=== PATIENT | male | born 1950 | race Caucasian/White ===

== ENCOUNTER 2019-06-25 13:50 | Day surgery (SDC) | payer MEDICARE, OTHER ==
[~2019-06-25] VITALS: Ht 162.6 cm; Wt 63.3 kg
[~2019-06-25 13:50] MED LIST: ATOR10; DUTA.5 PO; FINA5; Glucosamine H1500 MG PO; Hytrin2 MG; LOSA25; Lovastatin10 MG; OMEPRAZOLE20 MG
--- NOTE | 2019-06-25 14:29 | NUR ---
06/25/19 1429 Sara Kong 1 IV MISS IN RH BY VIVIENNE VALVE 1 GOOD IV IN RAC BY VIVIENNE PT TOW
--- NOTE | 2019-06-25 17:23 | NUR ---
06/25/19 6162 Jo Coleman TECH INJECTED 3 MLS NORMAL SALINE FOR POLYPECTOMY PER
--- NOTE | 2019-06-25 17:51 | NUR ---
06/25/19 1750 Savage Thompson PT HAS EXP WHEEZES POST OP. PT DENEIS FEELING SHORT OF BREATH. O2 SATURATION 96%. DR. SHEIKH NOTIFIED. DUONEB BREATHING TREATMENT ADMINISTERED PER DR. SHEIKH.
== END 2019-06-25 18:04 | disposition home or self-care (01) ==
LOC: ORSCSDS 13:50
PROVIDERS: Surgery
PROC: 0DBP8ZX Excision of Rectum, Via Natural or Artificial Opening Endoscopic, Diagnostic (ICD-10-PCS; principal; 2019-06-25 15:00)
PROC: 3E0H8GC Introduction of Other Therapeutic Substance into Lower GI, Via Natural or Artificial Opening Endoscopic (ICD-10-PCS; principal; 2019-06-25 15:00)
PROC: 0DBM8ZX Excision of Descending Colon, Via Natural or Artificial Opening Endoscopic, Diagnostic (ICD-10-PCS; principal; 2019-06-25 15:00)
PROC: 0DBH8ZX Excision of Cecum, Via Natural or Artificial Opening Endoscopic, Diagnostic (ICD-10-PCS; principal; 2019-06-25 15:00)
PROC: 0DBN8ZX Excision of Sigmoid Colon, Via Natural or Artificial Opening Endoscopic, Diagnostic (ICD-10-PCS; principal; 2019-06-25 15:00)
DX: Z12.11 Encounter for screening for malignant neoplasm of colon (principal); Z86.010 Personal history of colon polyps; D12.0 Benign neoplasm of cecum; D12.4 Benign neoplasm of descending colon; K63.5 Polyp of colon; K62.1 Rectal polyp; I10 Essential (primary) hypertension; E78.5 Hyperlipidemia, unspecified; Z79.899 Other long term (current) drug therapy
CPT/HCPCS: 88305; J2405; J2704; J7120

== ENCOUNTER 2022-05-17 08:17 | Day surgery (SDC) | payer MEDICARE, OTHER ==
[~2022-05-17] VITALS: Ht 162.6 cm; Wt 59.9 kg
[2022-05-17] MEDS ORDERED: LEVOTHYROXINE13 MCG (08:37)
--- NOTE | 2022-05-17 09:08 | NUR ---
05/17/22 0908 Leah Arthur TWO ATTEMPTS AT IV. FIRST ATTEMPPT AT IV BY MA IN RIGHT HAND INFILTRATED. SECOND ATTEMPT AT IV IN RIGHT AC BY MA SUCCESSFUL.
== END 2022-05-17 10:09 | disposition home or self-care (01) ==
LOC: ORSCSDS 08:17
PROVIDERS: Student in an Organized Health Care Education/Training Program
PROC: 0DB78ZX Excision of Stomach, Pylorus, Via Natural or Artificial Opening Endoscopic, Diagnostic (ICD-10-PCS; principal; 2022-05-17 09:30)
PROC: 0DB98ZX Excision of Duodenum, Via Natural or Artificial Opening Endoscopic, Diagnostic (ICD-10-PCS; principal; 2022-05-17 09:30)
PROC: 0DB58ZX Excision of Esophagus, Via Natural or Artificial Opening Endoscopic, Diagnostic (ICD-10-PCS; principal; 2022-05-17 09:30)
DX: K21.00 Gastro-esophageal reflux disease with esophagitis, without bleeding (principal); K29.80 Duodenitis without bleeding; K29.60 Other gastritis without bleeding; K44.9 Diaphragmatic hernia without obstruction or gangrene; I10 Essential (primary) hypertension; Z79.899 Other long term (current) drug therapy
CPT/HCPCS: 88305; 88312; 88313; 88342; J2704; J7120

== ENCOUNTER 2023-07-09 11:36 | Day surgery (SDC) | payer MEDICARE, OTHER ==
[~2023-07-09] VITALS: Ht 162.6 cm; Wt 58.8 kg
[~2023-07-09 11:36] MED LIST changes: +LEVOTHYROXINE13 MCG
[2023-07-09] MEDS ORDERED: FAMO20 (11:56)
[2023-07-09 13:38] VITALS: BP 138/80
== END 2023-07-09 13:41 | disposition home or self-care (01) ==
LOC: ORSCSDS 11:36
PROVIDERS: Surgery
PROC: 0DBL8ZX Excision of Transverse Colon, Via Natural or Artificial Opening Endoscopic, Diagnostic (ICD-10-PCS; principal; 2023-07-09 13:00)
PROC: 0DBN8ZX Excision of Sigmoid Colon, Via Natural or Artificial Opening Endoscopic, Diagnostic (ICD-10-PCS; principal; 2023-07-09 13:00)
DX: Z12.11 Encounter for screening for malignant neoplasm of colon (principal); Z86.010 Personal history of colon polyps; D12.3 Benign neoplasm of transverse colon; K63.5 Polyp of colon; D12.5 Benign neoplasm of sigmoid colon; K64.4 Residual hemorrhoidal skin tags; K21.9 Gastro-esophageal reflux disease without esophagitis; E78.5 Hyperlipidemia, unspecified; I10 Essential (primary) hypertension; E03.9 Hypothyroidism, unspecified; Z79.899 Other long term (current) drug therapy
CPT/HCPCS: 88305; J2704; J7120

== ENCOUNTER 2023-11-20 05:56 | Observation (INO) | payer MEDICARE, OTHER ==
[~2023-11-20] VITALS: Ht 162.6 cm; Wt 60.0 kg
[2023-11-20] VITALS (20 sets, daily range): BP systolic 129–159; BP diastolic 64–102
[~2023-11-20 05:56] MED LIST changes: +FAMO20 PO; -FINA5; +FINA5 PO; -Hytrin2 MG; +Hytrin2 MG PO; -LEVOTHYROXINE13 MCG; +LEVOTHYROXINE13 MCG PO; -Lovastatin10 MG; +Lovastatin10 MG PO
[2023-11-20] MEDS ORDERED: Lactated Ringer's 1,000 ML IV SCH ×2 (06:10→10:00)
[2023-11-20] MEDS ORDERED: Acetaminophen 500 MG Tab PO SCH (06:10)
[2023-11-20] MEDS ORDERED: Ondansetron HCl 2 MG / ML 2ML Vial ONE ×2 (06:53→10:21)
[2023-11-20] MEDS ORDERED: Lidocaine HCl 2% 20 ML MDV ONE (06:53)
[2023-11-20] MEDS ORDERED: Dexamethasone Sod Phos 10 MG/ML 1ML VIAL ONE (06:53)
[2023-11-20] MEDS ORDERED: propofoL 20 ML IV ONE (06:53)
[2023-11-20] MEDS ORDERED: Sugammadex Sodium 200 MG/2ML SDV (100 MG/ML) ONE (06:53)
[2023-11-20] MEDS ORDERED: Rocuronium Bromide 10 MG/ML 5ML Injection IV ONE ×2 (06:53→08:00)
[2023-11-20] MEDS ORDERED: FentaNYL Citrate 50 MCG/ML 2 ML Injection ONE ×3 (06:53→10:28)
[2023-11-20] MEDS ORDERED: Ondansetron HCl 2 MG / ML 2ML Vial IV PRN ×2 (06:55→09:55)
[2023-11-20] MEDS ORDERED: Lidocaine HCl 1% 5 ML SYR INJ ONE (06:55)
[2023-11-20] MEDS ORDERED: FentaNYL Citrate 50 MCG/ML 2 ML Injection IV PRN ×3 (06:55→07:00)
[2023-11-20] MEDS ORDERED: HYDROmorphone HCl/Pf 1MG SYR IV PRN (07:00)
--- NOTE | 2023-11-20 07:13 | NUR ---
Patient up to Ambulate independently. Gait steady. History, Chart, Medications and Allergies reviewed before start of procedure.Pre-Op teaching done. Pt verbalizes understanding.
[2023-11-20] MEDS ORDERED: Bupivacaine 0.5% HCl 5 MG/ML 30MLVIAL ONE (07:21)
[2023-11-20] MEDS ORDERED: ePHEDrine Sulfate 50 MG/ML 1ML Injection ONE (07:53)
[2023-11-20] MEDS ORDERED: Labetalol HCL 5 MG/ML 4ML Injection (Single Dose) ONE (08:23)
--- NOTE | 2023-11-20 09:34 | NUR ---
11/20/23 0934 DINH CHAO PROCDURE FROM [id number]. LEFT LEG PROCEDURE STARTED 932.
[2023-11-20] MEDS ORDERED: Metoclopramide HCl 5MG / ML 2ML Vial IV PRN (09:55)
[2023-11-20] MEDS ORDERED: OxyCODONE HCL 5 MG TAB PO PRN (09:55)
[2023-11-20] MEDS ORDERED: Acetaminophen 325 MG TABLET PO PRN (10:00)
[2023-11-20] MEDS ORDERED: FLU VACC QS2023-24(6MOS UP)/PF 60 MCG/0.5 ML SYRINGE IM SCH (10:00)
[2023-11-20] MEDS ORDERED: Ketorolac Tromethamine 15mg Vial IV PRN (10:15)
[2023-11-20] MEDS ORDERED: Droperidol 5 mg/2 ml Vial ONE (10:36)
[2023-11-20] MEDS ORDERED: Metoclopramide HCl 5MG / ML 2ML Vial ONE (10:52)
[2023-11-20] MEDS ORDERED: Metoclopramide HCl 5MG / ML 2ML Vial IV ONE (11:00)
[2023-11-20] MEDS ORDERED: Droperidol 5 mg/2 ml Vial IV ONE (11:00)
--- NOTE | 2023-11-20 11:30 | NUR ---
PATIENT ARRIVED FROM PACU TODAY. POD 0 LAP HIATAL HERNIA WITH FUNDOPLICATION AND LEFT CALF MASS REMOVAL PATIENT IS A&OX4. HE WAS ABLE TO STAND AND TRANSFER FROM THE [facility] TO THE [facility] [place]. PATIENTS ABD HAS X4 LAP SITES WITH WOUND GLUE THAT ARE C/D/I. HE ALSO HAS A PRIMEO DRESSING ON THE LEFT UPPER CALF FROM INCISION THAT IS ALSO C/D/I. PATIENT DENIES NUMBNESS OR TINGLING THROUGHOUT ALL EXTREMITIES. PATIENT REFUSES PAIN MEDS AT THIS TIME. PATIENT STATED "I STILL FEEL SLIGHTLY NAUSEOUS BUT THE MEDICATIONS THEY GAVE ME BACK THERE I THINK ARE WORKING. I DON'T WANT ANY MORE MEDICATIONS RIGHT NOW". PATIENT IS CURRENTLY LAYING IN BED WITH CALL LIGHT IN REACH. PATIENT IS AWARE OF DIET RESTRICTIONS SUCH NO CARBONATED DRINKS, CARBS, OR COFFEE. PATIENT WAS ALSO GIVEN DR. SUQIRES'S FUNDOPLICATION DIET EDUCATION PAPERWORK WELL WHICH IS AT HIS BEDSIDE.
--- NOTE | 2023-11-20 15:33 | NUR ---
SHIFT SUMMARY: POD 0 LAP HIATAL HERNIA WITH FUNDOPLICATION AND LEFT LEG MASS REMOVAL PATIENT IS A&OX4. VS ARE WNL AND IS ON RA. PATIENT HAS REFUSED PAIN MEDICATIONS SO FAR THIS SHIFT. HIS ABD HAS X4 LAP SITES WITH WOUND GLUE THAT ARE C/D/I. HE ALSO HAS AN INCISION ABOVE HIS LEFT CALF THAT HAS A PRIMEO DRESSING THAT IS ALSO C/D/I. PATIENT IS ABLE TO MOVE ALL EXTREMITIES WHEN ASKED. HE DENIES NAUSEA OR VOMITING THROUGHOUT THE SHIFT SO FAR. HE IS TOLERATING SMALL AMOUNTS OF CLEAR LIQUID PO INTAKE AND PATIENT WAS ALSO GIVEN DR. SQUIRES'S POST FUNDOPLICATION DIET PAPER INSTRUCTIONS THAT ARE AT BEDSIDE. HE IS CURRENTLY SITTING UP IN A CHAIR IN THE ROOM WITH CALL LIGHT IN REACH. PATIENT IS INDEP. IN THE ROOM. HE CALLS APPROPRIATELY.
[2023-11-20] MEDS ORDERED: Finasteride 5 MG Tab PO SCH (18:00)
[2023-11-20] MEDS ORDERED: Sennosides 8.6 MG Tab PO SCH (21:00)
[2023-11-20] MEDS ORDERED: Atorvastatin 10 MG Tab PO SCH (21:00)
[2023-11-20] MEDS ORDERED: Doxazosin Mesylate 2 MG Tab PO SCH (21:00)
[2023-11-21 04:37] VITALS: BP 153/91
[2023-11-21 05:37] LABS: Hematocrit 44.3 % (37.0-53.0); Hemoglobin 15.1 g/dL (13.5-17.5); Mean Corpuscular HGB 32.1 pg (26.0-34.0); Mean Corpuscular HGB Conc 34.1 g/dL (31.5-36.5); Mean Corpuscular Volume 94 fL (80-100); Mean Platelet Volume 9.6 fL (9.1-12.4); Platelet Count 323 K/mm3 (150-400); RDW Standard Deviation 48.4 fL (35.1-46.3)
--- NOTE | 2023-11-21 05:46 | NUR ---
SHIFT SUMMARY POD1 HIATAL HERNIA REPAIR. X4 LAP ARE C/D/I. PT SLEPT LIGHTLY T/O THE NIGHT. TOLLERATING MINIMAL CLEAR LIQUIDS T/O THE NIGHT W/O N/V. PT REPORTS PASSING FLATTUS. VOIDING W/O DIFFICULTY. AMBULATING INDEPENDENTLY. NO ACUTE EVENTS NOTED. PT EXPRESSED WANTING TO BE DISCHARGED JESSICA THIS AM, PLAN TO PASS THIS ONTO DAY SHIFT.
[2023-11-21] MEDS ORDERED: Levothyroxine Sodium 0.05 MG Tab PO SCH (06:00)
[2023-11-21 07:46] VITALS: BP 145/91
[2023-11-21] MEDS ORDERED: Acetaminophen650 M1 PO (08:29)
--- NOTE | 2023-11-21 08:47 | NUR ---
DISCHARGE PATIENT TOLERATING PO INTAKE, VOIDING, PAIN MANAGED. PASSES FLATUS. DISCHARGE INSTRUCTIONS GIVEN AND SIGNED PATIENT LEAVES VIA PRIVATE VEHICLE.
[2023-11-21] MEDS ORDERED: Enoxaparin 40 MG/0.4 ML SYR SC SCH (09:00)
--- NOTE | 2023-11-21 09:01 | NUR ---
DECLINES WC & AMBULATES OUT ON OWN. STATES HIS RIDE IS WAITING.
== END 2023-11-21 09:01 | disposition home or self-care (01) ==
LOC: ORSCMMR 05:56 → ORD 07:30 → ORSCMMR 07:30 → SURS 10:18 → ORSCMMR 10:19 → SURS 10:20
PROVIDERS: ADMIT Surgery
PROC: 0JBP0ZZ Excision of Left Lower Leg Subcutaneous Tissue and Fascia, Open Approach (ICD-10-PCS; principal; 2023-11-20 07:30)
PROC: 0BQT4ZZ Repair Diaphragm, Percutaneous Endoscopic Approach (ICD-10-PCS; principal; 2023-11-20 07:30)
DX: K44.9 Diaphragmatic hernia without obstruction or gangrene (principal); K21.00 Gastro-esophageal reflux disease with esophagitis, without bleeding; D36.13 Benign neoplasm of peripheral nerves and autonomic nervous system of lower limb, including hip; I10 Essential (primary) hypertension; E78.5 Hyperlipidemia, unspecified; E03.9 Hypothyroidism, unspecified; Z79.890 Hormone replacement therapy; Z79.899 Other long term (current) drug therapy
CPT/HCPCS: 36415; 74018; 85027; 88307; 94760; A9270; J1100; J1790; J2405; J2704; J2765; J3010; J7120

== ENCOUNTER 2024-04-15 07:52 | Day surgery (SDC) | payer MEDICARE, OTHER ==
[~2024-04-15] VITALS: Ht 162.6 cm; Wt 57.9 kg
[~2024-04-15 07:52] MED LIST changes: +Acetaminophen650 M1 PO; +Balanced Salt Epinephrine Irrigation Solution 500 mL IR SCH; +Lidocaine HCl/Pf 1% 5 ML VIAL XX SCH; +Moxifloxacin HCL 0.5 MG/0.1 ML 0.4MLSYR LEFTEYE SCH; +NS 500 ML IV ONE; +PHENYLEPHRINE\\TROPICAMIDE\\TETRACAINE OPHTHALMIC DILATING SOLN LEFTEYE PRN; +Povidone-Iodine 450 DROP/30 ML Solution LEFTEYE SCH; +Triamcinolone Inj Susp 40 MG / ML 1ML Vial INJ SCH; +Triamcinolone Inj Susp 40 MG / ML 1ML Vial ONE
[2024-04-15] MEDS ORDERED: NS 500 ML IV ONE (08:15)
[2024-04-15] MEDS ORDERED: Midazolam HCl 1MG / ML 2ML Vial ONE (08:46)
[2024-04-15] MEDS ORDERED: FentaNYL Citrate 50 MCG/ML 2 ML Injection ONE (08:46)
[2024-04-15] MEDS ORDERED: Tetracaine HCl 0.5% Opth Soln 15 ml LEFTEYE ONE (09:05)
[2024-04-15] MEDS ORDERED: Ondansetron 4 MG SoluTab ONE ×2 (09:33→09:36)
[2024-04-15 09:44] VITALS: BP 129/87
== END 2024-04-15 09:51 | disposition home or self-care (01) ==
LOC: ORSCSDS 07:52
PROVIDERS: Ophthalmology
PROC: 08RK3JZ Replacement of Left Lens with Synthetic Substitute, Percutaneous Approach (ICD-10-PCS; principal; 2024-04-15 09:00)
DX: H25.812 Combined forms of age-related cataract, left eye (principal); H52.202 Unspecified astigmatism, left eye; I10 Essential (primary) hypertension; E78.5 Hyperlipidemia, unspecified; E03.9 Hypothyroidism, unspecified; N40.0 Benign prostatic hyperplasia without lower urinary tract symptoms; Z85.53 Personal history of malignant neoplasm of renal pelvis; Z79.899 Other long term (current) drug therapy
CPT/HCPCS: A9270; J2250; J3010; J3301; J7040; V2632

== ENCOUNTER 2024-04-22 07:44 | Day surgery (SDC) | payer MEDICARE, OTHER ==
[~2024-04-22] VITALS: Ht 162.6 cm; Wt 58.0 kg
[~2024-04-22 07:44] MED LIST changes: -Moxifloxacin HCL 0.5 MG/0.1 ML 0.4MLSYR LEFTEYE SCH; +Moxifloxacin HCL 0.5 MG/0.1 ML 0.4MLSYR RIGHTEYE SCH; -NS 500 ML IV ONE; -PHENYLEPHRINE\\TROPICAMIDE\\TETRACAINE OPHTHALMIC DILATING SOLN LEFTEYE PRN; +PHENYLEPHRINE\\TROPICAMIDE\\TETRACAINE OPHTHALMIC DILATING SOLN RIGHTEYE PRN; -Povidone-Iodine 450 DROP/30 ML Solution LEFTEYE SCH; +Povidone-Iodine 450 DROP/30 ML Solution RIGHTEYE SCH
[2024-04-22] MEDS ORDERED: FINA5 PO (08:16)
[2024-04-22] MEDS ORDERED: NS 500 ML IV ONE (08:27)
[2024-04-22] MEDS ORDERED: Midazolam HCl 1MG / ML 2ML Vial ONE (08:40)
[2024-04-22] MEDS ORDERED: FentaNYL Citrate 50 MCG/ML 2 ML Injection ONE (08:40)
[2024-04-22 09:38] VITALS: BP 128/81
== END 2024-04-22 09:57 | disposition home or self-care (01) ==
LOC: ORSCSDS 07:44
PROVIDERS: Ophthalmology
PROC: 08RJ3JZ Replacement of Right Lens with Synthetic Substitute, Percutaneous Approach (ICD-10-PCS; principal; 2024-04-22 09:00)
DX: H25.811 Combined forms of age-related cataract, right eye (principal); H52.201 Unspecified astigmatism, right eye; Z96.1 Presence of intraocular lens; I10 Essential (primary) hypertension; E78.5 Hyperlipidemia, unspecified; E03.9 Hypothyroidism, unspecified; N40.0 Benign prostatic hyperplasia without lower urinary tract symptoms; Z85.53 Personal history of malignant neoplasm of renal pelvis; Z79.899 Other long term (current) drug therapy
CPT/HCPCS: J2250; J3010; J3301; V2632

== ENCOUNTER 2024-09-22 03:10 | Emergency (ER) | payer MEDICARE, OTHER ==
[~2024-09-22] VITALS: Ht 162.6 cm; Wt 57.6 kg
[~2024-09-22 03:10] MED LIST changes: -Balanced Salt Epinephrine Irrigation Solution 500 mL IR SCH; -Lidocaine HCl/Pf 1% 5 ML VIAL XX SCH; -Moxifloxacin HCL 0.5 MG/0.1 ML 0.4MLSYR RIGHTEYE SCH; -PHENYLEPHRINE\\TROPICAMIDE\\TETRACAINE OPHTHALMIC DILATING SOLN RIGHTEYE PRN; -Povidone-Iodine 450 DROP/30 ML Solution RIGHTEYE SCH; -Triamcinolone Inj Susp 40 MG / ML 1ML Vial INJ SCH; -Triamcinolone Inj Susp 40 MG / ML 1ML Vial ONE
[2024-09-22 03:37] VITALS: BP 153/88
[2024-09-22] MEDS ORDERED: SULFAMETHOXAZO1 EAC1 (03:46)
[2024-09-22 04:53] LABS: Source, Urine Straight Cath
[2024-09-22 04:55] LABS: BASOPHILS ABSOLUTE AUTO 0.08 K/mm3 (0.00-0.23); BASOPHILS PERCENT AUTO 1 % (0-2); EOSINOPHILS ABSOLUTE AUTO 0.04 K/mm3 (0.00-0.68); EOSINOPHILS PERCENT AUTO 0 % (0-6); Hematocrit 44.3 % (37.0-53.0); Hemoglobin 15.3 g/dL (13.5-17.5); IMMATURE GRAN ABSOLUTE AUTO 0.04 K/mm3 (0.00-0.10); IMMATURE GRAN PERCENT AUTO 0 % (0-1); LYMPHOCYTES ABSOLUTE AUTO 0.33 K/mm3 (0.84-5.20); LYMPHOCYTES PERCENT AUTO 3 % (21-46); MONOCYTES ABSOLUTE AUTO 0.99 K/mm3 (0.16-1.47); MONOCYTES PERCENT AUTO 8 % (4-13); Mean Corpuscular HGB 31.9 pg (26.0-34.0); Mean Corpuscular HGB Conc 34.5 g/dL (31.5-36.5); Mean Corpuscular Volume 93 fL (80-100); Mean Platelet Volume 8.7 fL (9.1-12.4); NEUTROPHILS ABSOLUTE AUTO 10.34 K/mm3 (1.96-9.15); NEUTROPHILS PERCENT AUTO 88 % (41-73); Platelet Count 304 K/mm3 (150-400); RDW Standard Deviation 44.4 fL (35.1-46.3); Red Blood Cell Count 4.79 M/mm3 (4.30-5.90); White Blood Cell Count 11.82 K/mm3 (4.00-11.30)
[2024-09-22 04:57] LABS: Appearance, Urine Clear (Clear); Bilirubin, Urine Neg (Neg); Blood, Urine 5+ (Neg); Color, Urine Yellow (P-Yellow); Glucose Qualitative, Urine Neg (Neg); Ketones, Urine 1+ (Neg); Leukocyte Esterase, Urine 1+ (Neg); Nitrite, Urine Neg (Neg); Protein, Urine 2+ (Neg); Specific Gravity, Urine 1.015 (1.003-1.022); Urobilinogen, Urine NORM (Normal)
[2024-09-22 05:16] LABS: Albumin, Blood 3.6 g/dL (3.4-5.0); Bilirubin, Total 0.6 mg/dL (0.1-1.0); Bun/Creatinine Ratio 16.1 (12.0-20.0); Calcium, Blood 9.3 mg/dL (8.5-10.1); Creatinine, Blood 1.12 mg/dL (0.60-1.20); Globulin, Blood 3.6 g/dL (2.2-4.0); Potassium, Blood 3.8 mmol/L (3.5-5.5); Total Protein, Blood 7.2 g/dL (6.4-8.2)
[2024-09-22 05:17] LABS: Bacteria Mod /hpf; Squamous Epithelial Cells Few /hpf (Few)
[2024-09-22] MEDS ORDERED: NS 1,000 ML IV SCH (05:35)
[2024-09-22] MEDS ORDERED: CefTRIAXone Sodium 1,000 MG in NS 50 ML IV ONE (05:40)
[2024-09-22] MEDS ORDERED: SULTRIDS PO (05:41)
== END 2024-09-22 07:12 | disposition home or self-care (01) ==
LOC: ER 03:10
PROVIDERS: Emergency Medicine
DX: N39.0 Urinary tract infection, site not specified (principal); R33.9 Retention of urine, unspecified; E86.0 Dehydration; N40.0 Benign prostatic hyperplasia without lower urinary tract symptoms; K21.9 Gastro-esophageal reflux disease without esophagitis; Z79.890 Hormone replacement therapy; Z79.899 Other long term (current) drug therapy; Z59.89 Other problems related to housing and economic circumstances
CPT/HCPCS: 80053; 81001; 85025; 87086; 96365; 99283-25; J0696; J7030